=== PATIENT | male | born 1960 | race Caucasian/White ===

== ENCOUNTER 2023-06-29 13:54 | Outpatient (OUT) | payer BC, SELFPAY ==
--- NOTE | 2023-06-29 14:09 | CA_ITS ---
[facility] Test Date: 2023-07-09 Pat Name: Jordin Yarbrough Department: Room: - Gender: Male Car Cooper: : 1960 Requested By: ROSALBA HANEY Order Number: [id number] Reading MD: JAVON GAONA Interpretive Statements Predominant rhythm is sinus with average rate of 70 bpm Tachycardia - max rate of 171 bpm - 50 episodes of PSVT w/ longest duration of 18 beats - longest episode of 24min 6sec with rates between 109-120 bpm Bradycardia - min rate of 49 bpm - longest episode of 50min 29sec with rates between 50-55 bpm Ventricular ectopy - 205 total (<1%) - 205 PVC Patient triggered events: 3 - associated with normal sinus rhythm w/ PVC, PAC - associated with palpitations Impression: Predominant rhythm is sinus with average rate of 70 bpm Fastest rate of 171 bpm and slowest rate of 49 bpm 205 PVC No atrial fibrillation No pauses or blocks Electronically Signed On 07-11-2023 7:21:11 EDT by JAVON GAONA
== END 2023-06-29 13:55 | disposition home or self-care (01) ==
LOC: CARD 13:58
PROVIDERS: PCP Family Medicine; Visit Provider Family Medicine
DX: R00.0 Tachycardia, unspecified (principal)
CPT/HCPCS: 93242